=== PATIENT | male | born 1965 | race Caucasian/White ===

== ENCOUNTER 2019-01-13 00:50 | Inpatient (IN) ==
--- NOTE | 2019-01-13 00:57 | ED ---
HPI General Chief complaint: Medical Clearance Stated complaint: Medical Time Seen by Provider: 01/13/19 00:54 Source: patient History of Present Illness HPI narrative: The patient is a 53 year old male who presents to the [facility] emergency department with a history of reportedly noticing numbness to his left foot, left lateral leg, and left side of his thorax below his nipple that began approximately a month ago. The patient reports that at times he has also had weakness in his left leg. He reports that he mainly notices this when he first gets up in the morning from bed and it causes him to stumble into the wall. He denies having any numbness or tingling to the upper extremities, or weakness of his upper extremities. He denies having any facial droop, headache , difficulty with word finding ability, vertigo, or vision changes. He denies having any saddle anesthesia. He reports that he has had intermittent right- sided back pain. He denies any trauma or injury associated with this. He denies having any loss of bowel or bladder control. He denies having any known recent fevers. He denies having any recent weight changes or night sweats. He denies any prior history of IV drug use. The patient was transferred over from the [place] [facility] emergency department for an MRI of the C-spine, T-spine, and lumbar spine. Laboratory studies were done at that facility and reviewed upon the patient's arrival. On review of systems otherwise, the patient denies having any cough, congestion, neck pain, chest pain, shortness of breath, abdominal pain, vomiting, diarrhea, urinary symptoms, or other neurologic symptoms. Related Data Home Medications Medication Instructions Recorded Confirmed No Known Home Medications 01/12/19 01/13/19 Allergies Allergy/AdvReac Type Severity Reaction Status Date / Time No Known Allergies Allergy Verified 01/12/19 22:25 Review of Systems ROS: all other systems reviewed are negative PMFSH History History Provided By: Patient Medical History Medical History Patient denies medical problems (Acute) Surgical History Surgical History H/O hernia repair (Acute) History of surgery on arm (Acute) Social History Social History Substance History: Active Abuse Smoking Status: Former smoker How Often Do You Have a Drink Containing Alcohol: Monthly or less Recent Travel in [facility] within the Last 8 Weeks: No Recent Out of Country Travel within the Last 8 Weeks: No Exam Const General: cooperative, no acute distress and well developed Nutritional Appearance: well nourished Orientation: alert, awake and oriented x3 [facility] Head: normocephalic and atraumatic Nose: no nasal discharge and no epistaxis Mouth: moist mucous membranes Throat: posterior oropharynx normal and uvula midline Eyes Sclera: normal sclerae Pupils: PERRL Neck Neck: no meningeal signs, trachea midline and no JVD Resp Effort & Inspection: no use of accessory muscles Auscultation: clear to auscultation bilaterally Cardio Rate: regular rate Rhythm: regular rhythm Heart Sounds: no gallops, no murmurs and no rubs GI Inspection: non-distended Palpation: soft, no hepatosplenomegaly, no guarding, not rigid and nontender Auscultation: normal bowel sounds Back/Spine/Pelvis Back: no CVA tenderness Cervical Spine: No cervical muscular tenderness and No cervical spinal tenderness Thoracic/Lumbar Spine: No thoracic spinal tenderness and No lumbar spinal tenderness Sacroiliac joints: on the right (Reported tenderness on palpation along the SI joint.) Skin General: dry skin (warm) Neuro General: alert, awake and oriented x3 Cranial Nerves: CN's II-XI intact bilaterally Speech: speech normal Gait: staggering (The patient has difficulty with his gait. The patient has difficulty weightbearing when tested on his left foot.) Motor: strength 5/5 throughout and no movement abnormalities noted Sensory Exam: other (The patient has loss of sensation along the lateral aspect of his lower leg on the left side, loss of sensation to the bottom of the foot in a stocking distribution. The patient has loss of sensation along the lateral aspect of his thorax to approximately 2 dermatomes below his nipple line.) Extrem General: normal to inspection, no clubbing, no cyanosis and no edema Psych Mood: congruent mood Affect: normal affect Judgment: judgment good Course Initial Documented Vital Signs Temperature 97.8 F 01/13/19 01:08 Pulse Rate 65 01/13/19 01:08 Respiratory Rate 14 01/13/19 01:08 Blood Pressure 150/84 H 01/13/19 01:08 Pulse Oximetry 99 01/13/19 01:08 Last Documented Vital Signs Temperature 97.8 F 01/13/19 01:08 Pulse Rate 62 01/13/19 06:27 Respiratory Rate 12 01/13/19 06:27 Blood Pressure 144/81 H 01/13/19 06:27 Pulse Oximetry 99 01/13/19 06:27 Medical Decision Making MDM Narrative Medical decision making narrative: During the course of the patient's emergency department visit, the patient's history, examination, and differential diagnosis were reviewed with the patient. The patient was placed on a lpn rn with oximetry and frequent blood pressure monitoring. The patient had IV access obtained and blood work sent for analysis. A diagnostic evaluation was continued regarding the patient's new neurologic symptoms over the last month. The patient had an MRI of the C-spine, T-spine, lumbar spine ordered. The sedimentation rate was added to the patient's workup that was previously done and reviewed from [place] emergency department. The patient's diagnostic studies are remarkable for a white blood cell count of 7.7, hemoglobin 13.9, platelets 277 with a normal differential, PT 9.6, PTT 26.5 , chemistries remarkable for chloride of 108, anion gap of 4, GFR of 78. CT scan of the brain was done at this facility that showed no acute abnormality. The patient was given aspirin 324 mg p.o. x1. MRI of the cervical spine revealed anterolisthesis of C4 on C5 and C7 on T1, minimal retrolisthesis of C5 on C6, without any significant canal stenosis, mild broad-based disc bulge without canal stenosis at C3-C4, mild broad-based protrusion of C4-C5 C5-C6 and C6-C7 causing mild canal stenosis, mild to moderate broad-based protrusion at C5 7 to T1 causes mild canal stenosis. T-spine MRI showed mild kyphosis and minimal degenerative changes, small right paracentral protrusion at T6-7 without canal stenosis, tiny central protrusion at T7-T8 without canal stenosis , mild broad-based disc bulge at T8-9 without canal stenosis. The patient's lumbar spine MRI shows1. Multilevel disc bulges including mild canal stenosis at L2-3, L3-4 and L4-5 levels.2. Scattered facet arthropathyand neural foraminal narrowing as above. Due to the patient's neurologic symptoms and lack of primary care physician, with unsteady gait, the patient will be admitted to the hospital for continued evaluation and treatment along with a neurologic consultation. The patient's case including history, pertinent physical examination findings, and laboratory studies were discussed with Dr. Harrison. It was agreed that the patient would be [facility]. The patient's results were discussed with the patient, including the plan of care. I explained that further testing and/ or monitoring is indicated based on the patient's history, examination, and/ or laboratory findings. Therefore, I recommended admission for additional evaluation. The patient expressed understanding and was agreeable with this plan. The patient was admitted to the hospital in guarded condition and sent to a bed under the care of the [facility] service. Medical Screen Exam Complete: Yes Emergency Medical Condition: Yes Differential Diagnosis Differential Diagnosis: Stroke, versus intracranial mass, versus cord compression, versus radiculopathy, versus multiple sclerosis, versus transverse myelitis Medical Records Medical records reviewed: Yes I reviewed the patient's medical records. Lab Data Lab results reviewed: Yes I reviewed the patient's lab results. Lab Results 01/13/19 Range/Units 02:43 ESR 6 (0-20) mm/hr Imaging Data Radiologist's impression: Cervical Spine MRI 01/13/19 01:00 CONCLUSION: 1. Anterolisthesis C4 on 5 and C7 on T1. 2. Minimal retrolisthesis C5 on 6. 3. Mild broad-based disc bulge without canal stenosis at C3-4. 4. Mild broad-based protrusion at C4-5, C5-6 and C6-7 levels causing mild canal stenosis. 5. Mild to moderate broad-based protrusion at C7-T1 causes mild canal stenosis. Lumbar Spine MRI 01/13/19 01:05 CONCLUSION: 1. Multilevel disc bulges including mild canal stenosis at L2-3, L3-4 and L4-5 levels. 2. Scattered facet arthropathy and neural foraminal narrowing as above. Thoracic Spine MRI 01/13/19 01:05 CONCLUSION: 1. Mild kyphosis and minimal degenerative changes. 2. Small right paracentral protrusion at T6-7 without canal stenosis. 3. Tiny central protrusion at T7-8 without canal stenosis. 4. Mild broad-based disc bulge T8-9 without canal stenosis. Head CT 01/13/19 03:59 CONCLUSION: 1. No acute intracranial abnormality . . Discharge Plan Discharge Disposition Patient Disposition: ED Admit(ED Internal Use Only) Discharge Order Discharge Orders: ED Use Only Admit Order (Routine); Ordered 01/13/19 Ordered By: Corrine Miles Discharge Details Diagnosis: Multiple neurological symptoms Physicians Team ED Provider: Corrine Miles Primary Care Provider: Primary Care Naheed Nam Attending Provider: Jadyn Casillas Other Providers: Gunner Back Discharge Interventions Interventions: Vital Signs Last Done: 01/13/19 01:17 Status ED Status: Admitted Patient
--- NOTE | 2019-01-13 02:17 | MR ---
EXAM DATE: 01/13/2019 2:13 AM EST AGE/SEX: 53 years / Male INDICATIONS: Foot drop. Left lower extremity numbness and weakness. CLINICAL DATA: This is the patient's initial encounter. Patient reports that signs and symptoms have been present for 1 month and indicates a pain score of 0/10. MEDICAL/SURGICAL HISTORY: None. Inguinal hernia repair. COMPARISON: No prior exams available for comparison. TECHNIQUE: Multiplanar, multisequence MRI of the thoracic spine was performed. FINDINGS: Vertebrae: Normal vertebral body height. Homogeneous marrow signal. Diffuse disc desiccation and mi nimal degenerative changes. Alignment: Mild kyphosis without spondylolisthesis. Cord: Normal position and configuration. T1-T2: The thecal sac has a normal diameter. No evidence of disc bulge or protrusion. T2-T3: The thecal sac has a normal diameter. No evidence of disc bulge or protrusion. T3-T4: The thecal sac has a normal diameter. No evidence of disc bulge or protrusion. T4-T5: The thecal sac has a normal diameter. No evidence of disc bulge or protrusion. T5-T6: The thecal sac has a normal diameter. No evidence of disc bulge or protrusion. T6-T7: Small right paracentral protrusion is seen without canal stenosis. T7-T8: Tiny central protrusion abuts the ventral thecal sac without canal stenosis T8-T9: Mild broad-based disc bulge abuts ventral thecal sac without canal stenosis T9-T10: The thecal sac has a normal diameter. No evidence of disc bulge or protrusion. T10-T11: The thecal sac has a normal diameter. No evidence of disc bulge or protrusion. T11-T12: The thecal sac has a normal diameter. No evidence of disc bulge or protrusion. T12-L1: The thecal sac has a normal diameter. No evidence of disc bulge or protrusion. CONCLUSION: 1. Mild kyphosis and minimal degenerative changes. 2. Small right paracentral protrusion at T6-7 without canal stenosis. 3. Tiny central protrusion at T7-8 without canal stenosis. 4. Mild broad-based disc bulge T8-9 without canal stenosis. Electronically signed by: Hardeep Shepherd MD Board Certified Radiologist 01/13/2019 2:16 AM EST
--- NOTE | 2019-01-13 02:41 | MR ---
EXAM DATE: 01/13/2019 2:24 AM EST AGE/SEX: 53 years / Male INDICATIONS: Foot drop. Left lower extremity numbness and weakness. CLINICAL DATA: This is the patient's initial encounter. Patient reports that signs and symptoms have been present for 1 month and indicates a pain score of 0/10. MEDICAL/SURGICAL HISTORY: None. Inguinal hernia repair. COMPARISON: No prior exams available for comparison. TECHNIQUE: Multiplanar, multisequence MRI of the lumbar spine was performed without contrast. Patie nt was scanned in a sitting position; neutral, flexion, and extension scans were performed in the sa gittal plane. FINDINGS: Vertebra: Homogeneous signal. Normal alignment. Conus: Normal level and configuration. T12-L1: The thecal sac has a normal diameter. No evidence of disc bulge or protrusion. The neural foramina are patent bilaterally. L1-L2: The thecal sac has a normal diameter. No evidence of disc bulge or protrusion. The neural foramina are patent bilaterally. L2-L3: Mild broad-based disc bulge abuts ventral thecal sac causing mild canal stenosis. Moderate f acet arthropathy. The neural foramina are patent bilaterally. L3-L4: Mild broad-based disc bulge abuts ventral thecal sac causing mild canal stenosis. Moderate f acet arthropathy. The neural foramina are patent bilaterally. L4-L5: Mild broad-based disc bulge with annular fissure posteriorly abuts ventral thecal sac causin g mild canal stenosis. Moderate facet arthropathy. There is mild neural foraminal narrowing bilateral ly. L5-S1: The thecal sac has a normal diameter. No evidence of disc bulge or protrusion. Moderate angie ral foraminal narrowing bilaterally. Moderate facet arthropathy. CONCLUSION: 1. Multilevel disc bulges including mild canal stenosis at L2-3, L3-4 and L4-5 levels. 2. Scattered facet arthropathy and neural foraminal narrowing as above. Electronically signed by: Hardeep Shepherd MD Board Certified Radiologist 01/13/2019 2:40 AM EST
--- NOTE | 2019-01-13 02:46 | MR ---
EXAM DATE: 01/13/2019 2:38 AM EST AGE/SEX: 53 years / Male INDICATIONS: Foot drop. Left lower extremity numbness and weakness. CLINICAL DATA: This is the patient's initial encounter. Patient reports that signs and symptoms have been present for 1 month and indicates a pain score of 0/10. MEDICAL/SURGICAL HISTORY: None. Inguinal hernia repair. COMPARISON: [facility] [place], MR THORACIC SPINE W/O CONTRAST, 01/13/2019. . TECHNIQUE: Multiplanar, multisequence MRI examination of the cervical spine was performed without co ntrast. FINDINGS: Motion artifact. Vertebrae: Normal vertebral body height. Homogeneous marrow signal. Diffuse disc desiccation and di sc space narrowing. Alignment: Minimal anterolisthesis C4 on 5 and 5 mm anterolisthesis C7 on T1. Minimal retrolisthesis C5 on 6. Cord: Normal configuration and signal. Post Fossa: The cerebellar tonsils are normal in position. C2-C3: The thecal sac has a normal configuration. There is no evidence of disc herniation or spinal canal stenosis. Mild neural foraminal narrowing on the right. Left neural foramen patent. C3-C4: Mild broad-based disc bulge abuts ventral thecal sac without canal stenosis. Mild to moderate bilateral neural foraminal narrowing. C4-C5: Minimal anterolisthesis and mild broad-based protrusion abuts the ventral thecal sac and caus es mild canal stenosis. Mild to moderate bilateral neural foraminal narrowing.. C5-C6: Minimal retrolisthesis. Mild broad-based protrusion abuts the ventral thecal sac causing mild canal stenosis. Moderate to severe bilateral neural foraminal narrowing. The neural foramina are pat ent bilaterally. C6-C7: Mild broad-based protrusion abuts the ventral thecal sac causing mild canal stenosis. Moderat e bilateral neural foraminal narrowing. C7-T1: Anterolisthesis. Mild to moderate broad-based protrusion abuts the ventral thecal sac and vent ral cord causing mild canal stenosis. CONCLUSION: 1. Anterolisthesis C4 on 5 and C7 on T1. 2. Minimal retrolisthesis C5 on 6. 3. Mild broad-based disc bulge without canal stenosis at C3-4. 4. Mild broad-based protrusion at C4-5, C5-6 and C6-7 levels causing mild canal stenosis. 5. Mild to moderate broad-based protrusion at C7-T1 causes mild canal stenosis. Electronically signed by: Hardeep Shepherd MD Board Certified Radiologist 01/13/2019 2:44 AM EST
[2019-01-13] MEDS ORDERED: Bisacodyl 10 MG Supp RECTAL PRN (04:32)
--- NOTE | 2019-01-13 04:37 | CT ---
EXAM DATE: 01/13/2019 4:33 AM EST AGE/SEX: 53 years / Male INDICATIONS: Numbness down left lower extremity. CLINICAL DATA: This is the patient's initial encounter. Patient reports that signs and symptoms have been present for 1 day and indicates a pain score of 10/10. MEDICAL/SURGICAL HISTORY: None. . Hernia, Right arm. RADIATION DOSE: 56.35 CTDI (mGy) COMPARISON: No prior exams available for comparison. TECHNIQUE: CT of the head without contrast. Using automated exposure control and adjustment of the mA and/or kV according to patient size, radiation dose was kept as low as reasonably achievable to ob tain optimal diagnostic quality images. DICOM format image data is available electronically for revi ew and comparison. FINDINGS: Cerebrum: The ventricles are normal for age. No evidence of midline shift, mass lesion, hemorrhage or acute infarction. No extraaxial fluid collections are seen. Posterior Fossa: The cerebellum and brainstem are intact. The 4th ventricle is midline. The cerebe llopontine angle is unremarkable. Extracranial: The visualized portion of the orbits is intact. Skull: The calvaria is intact. No evidence of skull fracture. CONCLUSION: 1. No acute intracranial abnormality . . Electronically signed by: Hardeep Shepherd MD Board Certified Radiologist 01/13/2019 4:36 AM EST
--- NOTE | 2019-01-13 11:23 | P.HPIM ---
History of Present Illness Primary Care Physician: No Primary Care Physician Chief Complaint: leg weakness History of Present Illness: 53yo w m states hes been having difficulty with his left leg for about a month. He states he started to have numbness and difficulty with gait, and his left leg will give out on him while walking or standing. Its been progressing to the point that he is unable to walk at home without stumbling into [place] and nearly falling and he has noticed the numbness has progressed up his left side now, so he finally presented to the ED at [place] and was sent to [place] for MRIs and neurologic eval. Patient denies any pain though states sometimes some left thigh pain, and more right and back pain, denies dizziness, fever, nack or arm pain or weakness, bowel or bladder symptoms or other history. 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 This includes certification that hospital inpatient services are reasonable and necessary and in the case of services not specified as inpatient-only under 42 CFR 419.22(n), that they are appropriately provided as inpatient services in accordance to with the 2-midnight benchmark under 43 CFR 412.3(e) Estimated Total Length of Stay (Days): 2 Plans for Post Hospital Care: Not yet determined [facility] Medical History Medical History Patient denies medical problems (Acute) Surgical History Surgical History H/O hernia repair (Acute) History of surgery on arm (Acute) Social History Social History Substance History: No History of Abuse Second Hand Smoke Exposure: No Smoking Status: Former smoker Tobacco Type: Cigarettes How Often Do You Have a Drink Containing Alcohol: Monthly or less Recent Travel in [facility] within the Last 8 Weeks: No Recent Out of Country Travel within the Last 8 Weeks: No Immunization History Tetanus Immunization: >5 Years Medications and Allergies Allergies Allergy/AdvReac Type Severity Reaction Status Date / Time No Known Allergies Allergy Verified 01/12/19 22:25 Home Medications Medication Instructions Recorded Confirmed Type No Known Home Medications 01/12/19 01/13/19 History Active Medications: Active Medications Acetaminophen (Tylenol) 650 mg PO Q4H PRN PRN Reason: Temp > 100.4 Al Hydroxide/Mg Hydroxide (Milk Of Magnesia Liq) 30 ml PO Q12H PRN PRN Reason: Mild Constipation Bisacodyl (Dulcolax Supp) 10 mg RECTAL DAILY PRN PRN Reason: SEVERE CONSITIPATION Lactulose (Lactulose Liq) 30 ml PO DAILY PRN PRN Reason: SEVERE CONSITIPATION Ondansetron HCl (Zofran Inj) 4 mg IV.PUSH Q6H PRN PRN Reason: NAUSEA OR VOMITING Sennosides (Senokot) 17.2 mg PO Q12H PRN PRN Reason: Moderate Constipation Sodium Chloride (Ns Flush) 2 ml IV.FLUSH BID KIRBY Last Admin: 01/13/19 09:29 Dose: 2 ml Sodium Chloride (Ns Flush) 2 ml IV.FLUSH PRN PRN PRN Reason: FLUSH AFTER USING IV ACCESS Physical Exam Vital signs: Vital Signs 01/13/19 01:08 01/13/19 01:17 01/13/19 01:18 Temperature 97.8 F Pulse Rate 65 64 Respiratory Rate 14 12 Blood Pressure 150/84 H Pulse Oximetry 99 99 99 01/13/19 06:27 01/13/19 07:14 Temperature Pulse Rate 62 76 Respiratory Rate 12 18 Blood Pressure 144/81 H 128/61 Pulse Oximetry 99 Intake & Output 01/12/19 01/13/19 01/13/19 18:59 06:59 18:59 Weight 74.843 kg Narrative: GENERAL: wdwn 53yo w m thin, pleasant, no distress SKIN: Warm and dry. multiple tatoos on arms no open sores or wounds, good turgor HEAD: Atraumatic. Normocephalic. EYES: Pupils equal and round. No scleral icterus. No injection or drainage. EOMI ENT: No nasal bleeding or discharge. Mucous membranes pink and moist. no gum lip dental lesions noted NECK: Supple, Trachea midline. No JVD. thyroid smooth not enlarged CARDIOVASCULAR: Regular rate and rhythm. no mr gallops clicks anterior chest wall no mass no tenderness RESPIRATORY: No accessory muscle use. Clear to auscultation. Breath sounds equal bilaterally. no dullness to percussion GASTROINTESTINAL: Abdomen soft, non-tender, nondistended. Hepatic and splenic margins not palpable. MUSCULOSKELETAL: Extremities without clubbing, cyanosis, or edema. No obvious deformities. NEUROLOGICAL: Awake and alert. No obvious cranial nerve deficits. Motor grossly within normal limits. Five out of 5 muscle strength in the arms and legs. Normal speech. less sensation to left LE, no clonus no rigidity, mild decrease dtr Left patellar compared to Right PSYCHIATRIC: Appropriate mood and affect; insight and judgment normal. Results Labs CBC & Chem 7: 01/14/19 05:39 01/14/19 05:39 Imaging Impressions Cervical Spine MRI 01/13/19 01:00 CONCLUSION: 1. Anterolisthesis C4 on 5 and C7 on T1. 2. Minimal retrolisthesis C5 on 6. 3. Mild broad-based disc bulge without canal stenosis at C3-4. 4. Mild broad-based protrusion at C4-5, C5-6 and C6-7 levels causing mild canal stenosis. 5. Mild to moderate broad-based protrusion at C7-T1 causes mild canal stenosis. Lumbar Spine MRI 01/13/19 01:05 CONCLUSION: 1. Multilevel disc bulges including mild canal stenosis at L2-3, L3-4 and L4-5 levels. 2. Scattered facet arthropathy and neural foraminal narrowing as above. Thoracic Spine MRI 01/13/19 01:05 CONCLUSION: 1. Mild kyphosis and minimal degenerative changes. 2. Small right paracentral protrusion at T6-7 without canal stenosis. 3. Tiny central protrusion at T7-8 without canal stenosis. 4. Mild broad-based disc bulge T8-9 without canal stenosis. Head CT 01/13/19 03:59 CONCLUSION: 1. No acute intracranial abnormality . . Caprini VTE Risk Assessment Caprini VTE Risk Assessment: Moderate/High Risk (score >= 2) Caprini Risk Assessment Model: Point Value = 1 Point Value = 2 Point Value = 3 Point Value = 5 Age 41-60 Minor surgery BMI > 25 kg/m2 Swollen legs Varicose veins or History of unexplained or recurrent spontaneous Oral contraceptives or hormone replacement Sepsis (< 1 month) Serious lung disease, including pneumonia (< 1 month) Abnormal pulmonary function Acute myocardial infarction Congestive heart failure (< 1 month) History of inflammatory bowel disease Medical patient at bed rest Age 61-74 Arthroscopic surgery Major open surgery (> 45 min) Laparoscopic surgery (> 45 min) Malignancy Confined to bed (> 72 hours) Immobilizing plaster cast Central venous access Age >= 75 History of VTE Family history of VTE Factor V Leiden Prothrombin [id number] Lupus anticoagulant Anticardiolipin antibodies Elevated serum homocysteine Heparin-induced thrombocytopenia Other congenital or acquired thrombophilia Stroke (< 1 month) Elective arthroplasty Hip, pelvis, or leg fracture Acute spinal cord injury (< 1 month) Prophylaxis Regimen: Total Risk Factor Score Risk Level Prophylaxis Regimen 0-1 Low Early ambulation 2 Moderate Order ONE of the following: *Sequential Compression Device (SCD) *Heparin 5000 units SQ BID 3-4 Higher Order ONE of the following medications: *Heparin 5000 units SQ TID *Enoxaparin/Lovenox 40 mg SQ daily (WT < 150 kg, CrCl > 30 mL/min) *Enoxaparin/Lovenox 30 mg SQ daily (WT < 150 kg, CrCl > 10-29 mL/min) *Enoxaparin/Lovenox 30 mg SQ BID (WT < 150 kg, CrCl > 30 mL/min) AND/OR *Sequential Compression Device (SCD) 5 or more Highest Order ONE of the following medications: *Heparin 5000 units SQ TID (Preferred with Epidurals) *Enoxaparin/Lovenox 40 mg SQ daily (WT < 150 kg, CrCl > 30 mL/min) *Enoxaparin/Lovenox 30 mg SQ daily (WT < 150 kg, CrCl > 10-29 mL/min) *Enoxaparin/Lovenox 30 mg SQ BID (WT < 150 kg, CrCl > 30 mL/min) AND *Sequential Compression Device (SCD) Assessment and Plan Plan PROGRESSIVE LEFT LE PARAESTHESIA w falls gait instability - pt eval, consult Neurology, DDD outpt followup, cont pt.
[2019-01-13] MEDS: Acetaminophen 325 MG Tablet PO PRN (17:00)
--- NOTE | 2019-01-13 20:07 | MB ---
cc: Gunner Back MD, PhD DATE: 01/13/2019 REASON FOR CONSULTATION: Left leg weakness. HISTORY OF PRESENT ILLNESS: Mr. Abreu is a 53-year-old man in previously good health until about a month ago, started noticing weakness of the left leg, some difficulty picking it up and walking. It has been gradually progressive. He has numbness in the leg as well. He does have back pain in the lumbar area. Denies neck pain. He has not had any weakness of the right leg or upper extremity symptoms. Denies any bladder incontinence. PAST MEDICAL HISTORY: Otherwise unremarkable except for history of hernia repair and arm surgery in the past. PHYSICAL EXAMINATION: Blood pressure 118/76, pulse 72, respirations 16, temperature 97.8 degrees. NEUROLOGIC: Higher cortical functions normal. Cranial nerves intact. Motor exam is 5/5 in all groups in the upper extremities. He had 5/5 strength in the right lower extremity. Left iliopsoas 4/5, left quads 5/5, left hamstring 4/5, left tibialis anterior 4/5, left gastrocnemius soleus 5/5. He has got some spasticity in the left leg. Sensory exam is normal. Deep tendon reflexes are 3+ patellar symmetric, 2+ ankle symmetric. Babinski is equivocal bilaterally, 1+ biceps, triceps and brachioradialis symmetric. IMAGING STUDIES: MRI scan of the cervical spine reveals spondylosis at several levels. There is some anterolisthesis C4 and C5 as well as C7 on T1 and mild retrolisthesis C5-C6, there is a disk bulge without stenosis at C3-C4, broad-based protrusions and disk bulges are seen at C4-C5, C5-C6, C6-C7 with mild stenosis and reviewing the MRI, the C7-T1 area does appear to cause some indentation on the spinal cord due to disk protrusion and anterolisthesis. MRI of the thoracic spine, mild kyphosis minimal degenerative changes. No evidence of any significant stenosis is identified. MRI of the lumbar spine, there is disc bulges L2-L3, L3-L4, and L4-L5 with mild stenosis. S LABORATORY DATA: Sedimentation rate is 6. IMPRESSION: Lower extremity weakness, possibly related to cervical spondylosis with myelopathy lumbosacral plexitis is also a possibility, although his reflexes appear to be hyperactive. RECOMMENDATIONS: MRI brain rule out right hemisphere process. Also, we will ask for neurosurgical opinion regarding the cervical stenosis. We will also place the patient on Decadron as well. Gunner Back MD, PhD CINDY/ts , 07:17 PM , 07:23 PM
[2019-01-14] MEDS: Acetaminophen 325 MG Tablet PO PRN (01:18)
[2019-01-14] MEDS: Famotidine 20 MG Tablet PO SCH ×3 (01:20→21:38)
[2019-01-14 06:40] LABS: Baso % (Auto) 0.2 % (0.0-2.0); Eos % (Auto) 0.2 % (0.0-4.0); Hematocrit 44.1 % (39.0-51.0); Hemoglobin 15.2 gm/dL (13.0-17.0); Lymph # (Auto) 0.8 th/mm3 (1.0-4.8); Lymph % (Auto) 6.8 % (9.0-44.0); Mean Corpuscular HGB Conc 34.6 % (32.0-36.0); Mean Corpuscular Hemoglobin 31.1 pg (27.0-34.0); Mean Corpuscular Volume 89.8 fL (80.0-100.0); Mono # (Auto) 0.1 th/mm3 (0.0-0.9); Mono % (Auto) 0.8 % (0.0-8.0); Neut # (Auto) 10.9 th/mm3 (1.8-7.7); Platelet Count 259 th/mm3 (150-450); Red Blood Count 4.91 mil/mm3 (4.50-5.90); Red Cell Distribution Width 12.9 % (11.6-17.2); White Blood Count 11.8 th/mm3 (4.0-11.0)
[2019-01-14 07:03] LABS: Alanine Aminotransferase 20 U/L (12-78); Albumin 3.7 g/dL (3.4-5.0); Anion Gap 6 meq/L (5-15); Aspartate Aminotransferase 15 U/L (15-37); Blood Urea Nitrogen 12 mg/dL (7-18); Calcium 8.7 mg/dL (8.5-10.1); Carbon Dioxide 27.7 meq/L (21.0-32.0); Chloride 107 meq/L (98-107); Glomerular Filtration Rate 81 mL/min (>89); Glucose,Random 115 mg/dL (74-106); Potassium 4.1 meq/L (3.5-5.1); Sodium 141 meq/L (136-145)
[2019-01-14 07:05] LABS: Alkaline Phosphatase 63 U/L (45-117); Total Protein 7.3 g/dL (6.4-8.2)
--- NOTE | 2019-01-14 10:26 | P.CONNS ---
History of Present Illness Service: neurosurgery Consult date: 01/14/19 Requesting Physician: Gunner Back Reason for Consult: Cervical myelopathy Primary Care Provider: No Primary Care Physician Chief Complaint: leg weakness History of Present Illness: Mr Abreu is a 53 year old male who has been having difficulty with his left leg for about a month. He states he started to have numbness and difficulty with gait, and his left leg will give out on him while walking or standing. His deficits have been progressing to the point that he is unable to walk at home without stumbling into [place] and nearly falling and he has noticed the numbness has progressed up his left side now. He presented to the ED at [place] and was sent to [place] for MRIs and neurologic evaluation. Patient denies any pain though states sometimes some left thigh pain, and more right and back pain, denies dizziness, fever, nack or arm pain or weakness, bowel or bladder symptoms or other history. PMFSH - History History Provided By: Patient - Medical History Medical History: Medical History (Last Reviewed 01/14/19 @ 09:13 by Noy Johns) Patient denies medical problems - Surgical History Surgical History: Surgical History (Last Reviewed 01/14/19 @ 09:13 by Noy Johns) H/O hernia repair History of surgery on arm - Tobacco History Second Hand Smoke Exposure: No Tobacco Use In Past 30 Days: No Smoking Status: Former smoker Tobacco Type: Cigarettes - Alcohol History How Often Do You Have a Drink Containing Alcohol: Monthly or less - Substance Use History Substance History: No History of Abuse - Travel History Recent Travel in the [place] Within the Last 8 Weeks: No Recent Travel Out of the Country Within the Last 8 Weeks: No - Immunization History Tetanus Immunization: >5 Years Medications and Allergies Active Medications: Active Medications Acetaminophen (Tylenol) 650 mg PO Q4H PRN PRN Reason: Temp > 100.4 Last Admin: 01/14/19 01:18 Dose: 650 mg Al Hydroxide/Mg Hydroxide (Milk Of Magnesia Liq) 30 ml PO Q12H PRN PRN Reason: Mild Constipation Bisacodyl (Dulcolax Supp) 10 mg RECTAL DAILY PRN PRN Reason: SEVERE CONSITIPATION Dexamethasone Sodium Phosphate (Decadron Inj) 4 mg IV.PUSH Q6HR KIRBY Last Admin: 01/14/19 05:05 Dose: 4 mg Famotidine (Pepcid) 20 mg PO BID [facility] Last Admin: 01/14/19 09:40 Dose: 20 mg Lactulose (Lactulose Liq) 30 ml PO DAILY PRN PRN Reason: SEVERE CONSITIPATION Ondansetron HCl (Zofran Inj) 4 mg IV.PUSH Q6H PRN PRN Reason: NAUSEA OR VOMITING Sennosides (Senokot) 17.2 mg PO Q12H PRN PRN Reason: Moderate Constipation Sodium Chloride (Ns Flush) 2 ml IV.FLUSH BID [facility] Last Admin: 01/14/19 09:42 Dose: 2 ml Sodium Chloride (Ns Flush) 2 ml IV.FLUSH PRN PRN PRN Reason: FLUSH AFTER USING IV ACCESS Allergies Allergy/AdvReac Type Severity Reaction Status Date / Time No Known Allergies Allergy Verified 01/12/19 22:25 Home Medications Medication Instructions Recorded Confirmed Type No Known Home Medications 01/12/19 01/13/19 History Exam Vital signs: Vital Signs 01/13/19 12:46 01/13/19 16:00 01/13/19 19:00 Temperature 97.8 F 98.2 F Pulse Rate 77 72 82 Respiratory Rate 18 16 14 Blood Pressure 128/57 L 118/76 122/67 Pulse Oximetry 98 97 01/13/19 23:44 01/14/19 00:00 01/14/19 03:21 Temperature 98.1 F 98.4 F Pulse Rate 78 80 81 Respiratory Rate 14 18 Blood Pressure 128/68 140/92 H Pulse Oximetry 99 99 01/14/19 04:00 01/14/19 07:00 01/14/19 07:23 Temperature 98.0 F 98.4 F Pulse Rate 68 64 98 H Respiratory Rate 16 20 Blood Pressure 118/76 125/69 Pulse Oximetry 98 97 01/14/19 08:00 01/14/19 09:00 Temperature Pulse Rate 70 68 Respiratory Rate Blood Pressure Pulse Oximetry Intake & Output 01/13/19 01/14/19 01/14/19 18:59 06:59 18:59 Intake Total 400 / 400 480 / 480 Output Total 300 / 300 Balance 400 / 400 180 / 180 Intake: Oral 400 / 400 480 / 480 Output: Urine 300 / 300 Other: # Voids 3 Date of Last Bowel Movement 01/13/19 Results - Laboratory Findings CBC and BMP: 01/14/19 05:39 02/28/19 05:39 Abnormal lab findings: Abnormal Labs 01/14/19 01/14/19 05:39 05:39 WBC 11.8 H Neut % (Auto) 92.0 H Lymph % (Auto) 6.8 L Neut # (Auto) 10.9 H Lymph # (Auto) 0.8 L Estimated GFR 81 L Random Glucose 115 H Assessment and Plan - Plan I have reviewed the clinical and radiological findings Impressions Cervical Spine MRI 01/13/19 01:00 CONCLUSION: 1. Anterolisthesis C4 on 5 and C7 on T1. 2. Minimal retrolisthesis C5 on 6. 3. Mild broad-based disc bulge without canal stenosis at C3-4. 4. Mild broad-based protrusion at C4-5, C5-6 and C6-7 levels causing mild canal stenosis. 5. Mild to moderate broad-based protrusion at C7-T1 causes mild canal stenosis. Lumbar Spine MRI 01/13/19 01:05 CONCLUSION: 1. Multilevel disc bulges including mild canal stenosis at L2-3, L3-4 and L4-5 levels. 2. Scattered facet arthropathy and neural foraminal narrowing as above. Thoracic Spine MRI 01/13/19 01:05 CONCLUSION: 1. Mild kyphosis and minimal degenerative changes. 2. Small right paracentral protrusion at T6-7 without canal stenosis. 3. Tiny central protrusion at T7-8 without canal stenosis. 4. Mild broad-based disc bulge T8-9 without canal stenosis. Head CT 01/13/19 03:59 CONCLUSION: 1. No acute intracranial abnormality Caprini VTE Risk Assessment Caprini Risk Assessment Model: Point Value = 1 Point Value = 2 Point Value = 3 Point Value = 5 Age 41-60 Minor surgery BMI > 25 kg/m2 Swollen legs Varicose veins or History of unexplained or recurrent spontaneous Oral contraceptives or hormone replacement Sepsis (< 1 month) Serious lung disease, including pneumonia (< 1 month) Abnormal pulmonary function Acute myocardial infarction Congestive heart failure (< 1 month) History of inflammatory bowel disease Medical patient at bed rest Age 61-74 Arthroscopic surgery Major open surgery (> 45 min) Laparoscopic surgery (> 45 min) Malignancy Confined to bed (> 72 hours) Immobilizing plaster cast Central venous access Age >= 75 History of VTE Family history of VTE Factor V Leiden Prothrombin [id number] Lupus anticoagulant Anticardiolipin antibodies Elevated serum homocysteine Heparin-induced thrombocytopenia Other congenital or acquired thrombophilia Stroke (< 1 month) Elective arthroplasty Hip, pelvis, or leg fracture Acute spinal cord injury (< 1 month) Prophylaxis Regimen: Total Risk Factor Score Risk Level Prophylaxis Regimen 0-1 Low Early ambulation 2 Moderate Order ONE of the following: *Sequential Compression Device (SCD) *Heparin 5000 units SQ BID 3-4 Higher Order ONE of the following medications: *Heparin 5000 units SQ TID *Enoxaparin/Lovenox 40 mg SQ daily (WT < 150 kg, CrCl > 30 mL/min) *Enoxaparin/Lovenox 30 mg SQ daily (WT < 150 kg, CrCl > 10-29 mL/min) *Enoxaparin/Lovenox 30 mg SQ BID (WT < 150 kg, CrCl > 30 mL/min) AND/OR *Sequential Compression Device (SCD) 5 or more Highest Order ONE of the following medications: *Heparin 5000 units SQ TID (Preferred with Epidurals) *Enoxaparin/Lovenox 40 mg SQ daily (WT < 150 kg, CrCl > 30 mL/min) *Enoxaparin/Lovenox 30 mg SQ daily (WT < 150 kg, CrCl > 10-29 mL/min) *Enoxaparin/Lovenox 30 mg SQ BID (WT < 150 kg, CrCl > 30 mL/min) AND *Sequential Compression Device (SCD)
[2019-01-14] MEDS ORDERED: Gadobutrol PF 7.5 MMOL/7.5 ML Vial (for RAD) IV.SIG ONE (13:40)
--- NOTE | 2019-01-14 14:00 | MR ---
EXAM DATE: 01/14/2019 1:42 PM EST AGE/SEX: 53 years / Male INDICATIONS: CVA. Patient complains of left lower extremity numbness. CLINICAL DATA: This is the patient's initial encounter. Patient reports that signs and symptoms have been present for 1 day and indicates a pain score of 4/10. MEDICAL/SURGICAL HISTORY: None. . Hernia sx, Rt arm sx. COMPARISON: No prior exams available for comparison. TECHNIQUE: Multiplanar, multisequence examination of the brain was performed without and with 7 ml Ga davist (gadobutrol) contrast as a single exam dose. FINDINGS: Cerebrum: The ventricles are normal for age. No evidence of midline shift, mass lesion, hemorrhage or acute infarction. No extraaxial fluid collections are seen. The pituitary gland and suprasellar cistern are normal in configuration. White Matter: No significant signal abnormalities are seen in the white matter. Posterior Fossa: The cerebellum and brainstem are intact. The 4th ventricle is midline. The cerebel lopontine angle is unremarkable. The cerebellar tonsils are normal in position. Diffusion Imaging: No focal areas of restricted diffusion are seen. No evidence of acute infarction . Extracranial: The visualized portions of the orbits and paranasal sinuses are unremarkable. Post Contrast: No abnormal areas of parenchymal or dural enhancement. No evidence of blood-brain ba rrier breakdown. CONCLUSION: 1. No acute hemorrhage, mass or evidence of acute infarction. Electronically signed by: Tashi Weiner MD Board Certified Radiologist 01/14/2019 1:59 PM EST
--- NOTE | 2019-01-14 14:13 | XR ---
EXAM DATE: 01/14/2019 2:05 PM EST AGE/SEX: 53 years / Male INDICATIONS: Anterior spondylolisthesis at C4-5. Please evaluate for possible instability. CLINICAL DATA: This is the patient's initial encounter. Patient reports that signs and symptoms have been present for 1 day and indicates a pain score of 0/10. MEDICAL/SURGICAL HISTORY: None. . Hernia sx, Rt arm sx. COMPARISON: [facility], SPINE CERVICAL COMPLETE ([id number]), 05/09/2017. . FINDINGS: Lateral views of the cervical spine were obtained with neutral, flexion and extension positioning. A grade 1 anterior spondylolisthesis of C4 on C5 is again noted. This measures approximately 4 mm in di stance and does not appear to change with flexion and extension positioning. Degenerative disc change s are present at the C5-6 and C6-7 levels with disc space narrowing and hypertrophic changes. The pre vertebral soft tissues within normal limits. There is no visualized fracture. CONCLUSION: Grade 1 mild anterior spondylolisthesis of C4 on C5 with no abnormal mobility. Electronically signed by: Tashi Weiner MD Board Certified Radiologist 01/14/2019 2:12 PM EST
--- NOTE | 2019-01-14 14:45 | CT ---
EXAM DATE: 01/14/2019 2:28 PM EST AGE/SEX: 53 years / Male INDICATIONS: Myelopathy grade 1 anterior spondylolisthesis of C4 on C5 seen on plain film. CLINICAL DATA: This is the patient's initial encounter. Patient reports that signs and symptoms have been present for 1 day and indicates a pain score of 5/10. MEDICAL/SURGICAL HISTORY: None. . hernia repair RADIATION DOSE: 19.61 CTDI (mGy) COMPARISON: [facility] [place], CERVICAL SPINE W/O CONTRAST, 01/13/2019. . TECHNIQUE: Contiguous axial images were obtained using helical multirow detector technique. Data se ts were acquired prior to and after intravenous administration 67 ml Omnipaque 350 (iohexol) nonioni c water-soluble contrast as a single exam dose. The volumetric data was post-processed with multipl nikolas reconstruction in oblique axial, sagittal, and coronal planes. Using automated exposure control and adjustment of the mA and/or kV according to patient size, radiation dose was kept as low as reas onably achievable to obtain optimal diagnostic quality images. DICOM format image data is available electronically for review and comparison. FINDINGS: Vertebrae: Normal vertebral body height. Alignment: Mild anterior subluxation of C4 on C5 of approximately 3 mm. There is mild anterior sublu xation of C7 on T1 of approximately 3 mm as well. Discs: Degenerative disc changes are present greatest at the C5-6 and C6-7 levels with disc space jeannette rowing and mild hypertrophic change. Post Contrast: No abnormal areas of enhancement are seen in the cord, dural or paraspinal regions. C2-3: The bony spinal canal is normal in size. No evidence of disc bulge or herniation. There is mo derate narrowing of the right neural foramina. The left is patent. C3-4: Mild disc bulge with no mass effect on the thecal sac. There is moderate to severe narrowing o f the right neural foramina secondary to degenerative change involving the facet joint and uncoverteb ral joint. Hypertrophic spurring is noted involving the right facet. C4-5: Mild disc bulge with mild mass effect on the anterior thecal sac and no mass effect upon the c ord. There is moderate narrowing of the neural foramina bilaterally. There are hypertrophic changes i nvolving the facet joints. C5-6: Posterior disc osteophyte complex greatest in the right parasagittal region. This comes in shakeel se contact with the cord. There is moderate narrowing of the neural foramina bilaterally. C6-7: The moderate size right posterior protrusion greatest in the right parasagittal region. This c omes in close contact with the anterior cord. There is moderate narrowing of the neural foramina bila terally. C7-T1: Grade 1 anterior spondylolisthesis. There is apparent diffuse disc bulge with mass effect on the anterior thecal sac. The cord is not well delineated secondary to streak artifact. CONCLUSION: 1. Grade 1 anterior spondylolisthesis of C7 on T1 with apparent diffuse disc bulge with mass effect on the anterior thecal sac. The cord is not well delineated on the CT secondary to streak artifact. M RI there is evidence of central canal stenosis. 2. Posterior disc osteophyte complex at C5-6 greatest in right parasagittal region comes in close c ontact with the cord. 3. Narrowing of the neural foramina at multiple levels greatest on the right at the C3-4 level. 4. Mild grade 1 anterior spondylolisthesis of C4 on C5. Electronically signed by: Tashi Weiner MD Board Certified Radiologist 01/14/2019 2:44 PM EST
--- NOTE | 2019-01-14 16:00 | P.PNIM ---
Subjective Interval history: Patient laying down in bed. He says he is anxious to know what is causing his symptoms. No other complaints from the patient. Physical Exam Vital signs: Vital Signs 01/13/19 16:00 01/13/19 19:00 01/13/19 23:44 Temperature 97.8 F 98.2 F 98.1 F Pulse Rate 72 82 78 Respiratory Rate 16 14 14 Blood Pressure 118/76 122/67 128/68 Pulse Oximetry 97 99 01/14/19 00:00 01/14/19 03:21 01/14/19 04:00 Temperature 98.4 F 98.0 F Pulse Rate 80 81 68 Respiratory Rate 18 16 Blood Pressure 140/92 H 118/76 Pulse Oximetry 99 98 01/14/19 07:00 01/14/19 07:23 01/14/19 08:00 Temperature 98.4 F Pulse Rate 64 98 H 70 Respiratory Rate 20 Blood Pressure 125/69 Pulse Oximetry 97 01/14/19 09:00 01/14/19 11:00 01/14/19 11:22 Temperature 98.0 F Pulse Rate 68 64 97 H Respiratory Rate 18 Blood Pressure 131/83 Pulse Oximetry 98 01/14/19 12:00 01/14/19 12:53 01/14/19 14:00 Temperature Pulse Rate 64 123 H 98 H Respiratory Rate Blood Pressure Pulse Oximetry 01/14/19 15:14 Temperature 97.5 F L Pulse Rate 95 H Respiratory Rate 20 Blood Pressure 115/76 Pulse Oximetry 99 Intake & Output 01/13/19 01/14/19 01/14/19 18:59 06:59 18:59 Intake Total 400 / 400 480 / 480 Output Total 300 / 300 Balance 400 / 400 180 / 180 Intake: Oral 400 / 400 480 / 480 Output: Urine 300 / 300 Other: # Voids 3 Date of Last Bowel Movement 01/13/19 Narrative: General patient in no acute distress HEENT extraocular movements are intact, clear oropharyngeal mucosa, no JVD Cardiovascular S1-S2 audible, RRR, no murmurs rubs or gallops Respiratory clear to auscultation bilaterally Abdomen soft, nontender, nondistended, normal bowel sounds Extremities no edema 2+ distal pulses in bilateral upper and lower extremities Neuro patient can move all 4 extremities, sensation is intact bilaterally. Patient does have some motor weakness in the left lower extremity 4 out of 5 strength and some tingling-like sensation to the left lateral calf down to his foot. I do not see any other focal neurological deficits. Results Labs CBC & Chem 7: 01/14/19 05:39 01/14/19 05:39 Imaging Imaging: Impressions Cervical Spine MRI 01/13/19 01:00 CONCLUSION: 1. Anterolisthesis C4 on 5 and C7 on T1. 2. Minimal retrolisthesis C5 on 6. 3. Mild broad-based disc bulge without canal stenosis at C3-4. 4. Mild broad-based protrusion at C4-5, C5-6 and C6-7 levels causing mild canal stenosis. 5. Mild to moderate broad-based protrusion at C7-T1 causes mild canal stenosis. Cervical Spine CT 01/14/19 00:00 CONCLUSION: 1. Grade 1 anterior spondylolisthesis of C7 on T1 with apparent diffuse disc bulge with mass effect on the anterior thecal sac. The cord is not well delineated on the CT secondary to streak artifact. MRI there is evidence of central canal stenosis. 2. Posterior disc osteophyte complex at C5-6 greatest in right parasagittal region comes in close contact with the cord. 3. Narrowing of the neural foramina at multiple levels greatest on the right at the C3-4 level. 4. Mild grade 1 anterior spondylolisthesis of C4 on C5. Cervical Spine X-Ray 01/14/19 00:00 CONCLUSION: Grade 1 mild anterior spondylolisthesis of C4 on C5 with no abnormal mobility. Head MRI 01/14/19 00:00 CONCLUSION: 1. No acute hemorrhage, mass or evidence of acute infarction. Assessment and Plan Plan This patient is a 53-year-old male who presented with difficulty moving his left lower extremity and was having complaints of numbness as well as difficulty with gait. He said when attempting to ambulate sometimes his left lower extremity would give out. He initially presented to the [facility] and then was transferred to the main hospital for neurological examination. 1. Left lower extremity weakness possibly related to cervical spondylosis with myelopathy Patient presented with the symptoms mentioned above. MRI of the thoracic spine shows mild kyphosis, lumbar spine shows disc bulges at L2L3, L3-L4, L4-L5 Neurosurgery has been consulted by the neurologist for evaluation. Grade 1 anterior spondylolisthesis of C7 on T1 with apparent diffuse disc bulge with mass effect on the anterior thecal sac. The cord is not well delineated on the CT secondary to streak artifact. MRI there is evidence of central canal stenosis. Neurosurgery has been consulted by the neurologist for evaluation. Neurology is following the patient. MRI of the brain was done today which did not show any significant findings. Patient was started on steroids by the neurologist. I appreciate input from the neurologist. Continue PT/OT Lovenox for DVT prophylaxis Progress Note: Quality VTE Deep Vein Thrombosis/Pulmonary Embolism Present on Admission: No
[2019-01-15] MEDS: Acetaminophen 325 MG Tablet PO PRN (00:20)
[2019-01-15] MEDS ORDERED: ALPRAZolam 0.5 MG Tablet PO ONE (02:24)
--- NOTE | 2019-01-15 08:34 | P.PNNEU ---
Subjective Subjective Comments: pt c/o severe low back pain and still feels weak LLE Dr Schwartz consult appreciated Active Medications: Active Medications Acetaminophen (Tylenol) 650 mg PO Q4H PRN PRN Reason: Temp > 100.4 Last Admin: 01/15/19 00:20 Dose: 650 mg Al Hydroxide/Mg Hydroxide (Milk Of Magnesia Liq) 30 ml PO Q12H PRN PRN Reason: Mild Constipation Bisacodyl (Dulcolax Supp) 10 mg RECTAL DAILY PRN PRN Reason: SEVERE CONSITIPATION Dexamethasone Sodium Phosphate (Decadron Inj) 4 mg IV.PUSH Q6HR [facility] Last Admin: 01/15/19 05:30 Dose: 4 mg Enoxaparin Sodium (Lovenox Inj) 40 mg SQ DAILY [facility] Famotidine (Pepcid) 20 mg PO BID [facility] Last Admin: 01/14/19 21:38 Dose: 20 mg Lactulose (Lactulose Liq) 30 ml PO DAILY PRN PRN Reason: SEVERE CONSITIPATION Ondansetron HCl (Zofran Inj) 4 mg IV.PUSH Q6H PRN PRN Reason: NAUSEA OR VOMITING Sennosides (Senokot) 17.2 mg PO Q12H PRN PRN Reason: Moderate Constipation Sodium Chloride (Ns Flush) 2 ml IV.FLUSH BID [facility] Last Admin: 01/14/19 21:38 Dose: 2 ml Sodium Chloride (Ns Flush) 2 ml IV.FLUSH PRN PRN PRN Reason: FLUSH AFTER USING IV ACCESS Allergies/Adverse Reactions: Allergies Allergy/AdvReac Type Severity Reaction Status Date / Time No Known Allergies Allergy Verified 01/12/19 22:25 Physical Exam Vital signs: Vital Signs 01/14/19 09:00 01/14/19 11:00 01/14/19 11:22 Temperature 98.0 F Pulse Rate 68 64 97 H Respiratory Rate 18 Blood Pressure 131/83 Pulse Oximetry 98 01/14/19 12:00 01/14/19 12:53 01/14/19 14:00 Temperature Pulse Rate 64 123 H 98 H Respiratory Rate Blood Pressure Pulse Oximetry 01/14/19 15:00 01/14/19 15:14 01/14/19 16:00 Temperature 97.5 F L Pulse Rate 88 95 H 82 Respiratory Rate 20 Blood Pressure 115/76 Pulse Oximetry 99 01/14/19 17:00 01/14/19 18:00 01/14/19 19:00 Temperature Pulse Rate 84 86 92 H Respiratory Rate Blood Pressure Pulse Oximetry 01/14/19 20:00 01/14/19 21:00 01/14/19 22:00 Temperature 98.1 F Pulse Rate 100 H 94 H 86 Respiratory Rate 16 Blood Pressure 145/78 H Pulse Oximetry 100 01/14/19 23:00 01/15/19 00:00 01/15/19 01:00 Temperature Pulse Rate 82 76 76 Respiratory Rate 18 Blood Pressure 125/86 Pulse Oximetry 97 01/15/19 02:00 01/15/19 03:00 01/15/19 04:00 Temperature 97.9 F Pulse Rate 76 80 80 Respiratory Rate 18 Blood Pressure 130/73 Pulse Oximetry 97 01/15/19 05:00 01/15/19 06:00 Temperature Pulse Rate 76 82 Respiratory Rate Blood Pressure Pulse Oximetry Intake & Output 01/14/19 01/15/19 01/15/19 18:59 06:59 18:59 Intake Total 840 / 840 Balance 840 / 840 Weight 74.7 kg Intake: Oral 840 / 840 Other: # Voids 4 - Routine Neurological Exam alert, speech normal CN intact MOTOR 5/5 BUE and RLE. His LLE strength is improved today at 5-/5 left iliopsoas, 5/5 left quads, 5-/5 left hamstring 5-/5 left tibialis anterior and EHL. 5/5 left gastroc/soleus DTR 2+ BLE-patellar and ankle . No Babinski Review/Management - Review/Management Plan: I think this may be a left lumbo-sacral plexopathy REC--EMG/nerve conduction study. I spoke with Dr Betancourt. change decadron to po and taper. start neurontin for neurogenic pain
[2019-01-15] MEDS: Famotidine 20 MG Tablet PO SCH ×2 (09:58→20:44)
[2019-01-15] MEDS: Gabapentin 300 MG Capsule PO SCH ×2 (09:58→20:44)
[2019-01-15] MEDS: Enoxaparin Inj 40 MG/0.4 ML Syringe SQ SCH (09:58)
--- NOTE | 2019-01-15 11:40 | P.PNIM ---
Subjective Interval history: Patient is in bed, appears in not acute distress at this time. He complains of back pain. No fever or chills. Physical Exam Vital signs: Vital Signs 01/14/19 12:00 01/14/19 12:53 01/14/19 14:00 Temperature Pulse Rate 64 123 H 98 H Respiratory Rate Blood Pressure Pulse Oximetry 01/14/19 15:00 01/14/19 15:14 01/14/19 16:00 Temperature 97.5 F L Pulse Rate 88 95 H 82 Respiratory Rate 20 Blood Pressure 115/76 Pulse Oximetry 99 01/14/19 17:00 01/14/19 18:00 01/14/19 19:00 Temperature Pulse Rate 84 86 92 H Respiratory Rate Blood Pressure Pulse Oximetry 01/14/19 20:00 01/14/19 21:00 01/14/19 22:00 Temperature 98.1 F Pulse Rate 100 H 94 H 86 Respiratory Rate 16 Blood Pressure 145/78 H Pulse Oximetry 100 01/14/19 23:00 01/15/19 00:00 01/15/19 01:00 Temperature Pulse Rate 82 76 76 Respiratory Rate 18 Blood Pressure 125/86 Pulse Oximetry 97 01/15/19 02:00 01/15/19 03:00 01/15/19 04:00 Temperature 97.9 F Pulse Rate 76 80 80 Respiratory Rate 18 Blood Pressure 130/73 Pulse Oximetry 97 01/15/19 05:00 01/15/19 06:00 01/15/19 10:00 Temperature 98.0 F Pulse Rate 76 82 101 H Respiratory Rate 16 Blood Pressure 120/69 Pulse Oximetry 97 Intake & Output 01/14/19 01/15/19 01/15/19 18:59 06:59 18:59 Intake Total 840 / 840 Balance 840 / 840 Weight 74.7 kg Intake: Oral 840 / 840 Other: # Voids 4 Date of Last Bowel Movement 02/10/19 Narrative: General patient in no acute distress HEENT extraocular movements are intact, clear oropharyngeal mucosa, no JVD Cardiovascular S1-S2 audible, RRR, no murmurs rubs or gallops Respiratory clear to auscultation bilaterally Abdomen soft, nontender, nondistended, normal bowel sounds Extremities no edema 2+ distal pulses in bilateral upper and lower extremities Neuro patient can move all 4 extremities, sensation is intact bilaterally. Patient does have some motor weakness in the left lower extremity 4 out of 5 strength and some tingling-like sensation to the left lateral calf down to his foot. I do not see any other focal neurological deficits. Results Labs CBC & Chem 7: 01/14/19 05:39 01/14/19 05:39 Imaging Imaging: Impressions Cervical Spine MRI 01/13/19 01:00 CONCLUSION: 1. Anterolisthesis C4 on 5 and C7 on T1. 2. Minimal retrolisthesis C5 on 6. 3. Mild broad-based disc bulge without canal stenosis at C3-4. 4. Mild broad-based protrusion at C4-5, C5-6 and C6-7 levels causing mild canal stenosis. 5. Mild to moderate broad-based protrusion at C7-T1 causes mild canal stenosis. Cervical Spine CT 01/14/19 00:00 CONCLUSION: 1. Grade 1 anterior spondylolisthesis of C7 on T1 with apparent diffuse disc bulge with mass effect on the anterior thecal sac. The cord is not well delineated on the CT secondary to streak artifact. MRI there is evidence of central canal stenosis. 2. Posterior disc osteophyte complex at C5-6 greatest in right parasagittal region comes in close contact with the cord. 3. Narrowing of the neural foramina at multiple levels greatest on the right at the C3-4 level. 4. Mild grade 1 anterior spondylolisthesis of C4 on C5. Cervical Spine X-Ray 01/14/19 00:00 CONCLUSION: Grade 1 mild anterior spondylolisthesis of C4 on C5 with no abnormal mobility. Head MRI 01/14/19 00:00 CONCLUSION: 1. No acute hemorrhage, mass or evidence of acute infarction. Assessment and Plan Plan This patient is a 53-year-old male who presented with difficulty moving his left lower extremity and was having complaints of numbness as well as difficulty with gait. He said when attempting to ambulate sometimes his left lower extremity would give out. He initially presented to the [facility] and then was transferred to the main hospital for neurological examination. 1. Left lower extremity weakness possibly related to cervical spondylosis with myelopathy Patient presented with the symptoms mentioned above. MRI of the thoracic spine shows mild kyphosis, lumbar spine shows disc bulges at L2L3, L3-L4, L4-L5 Neurosurgery has been consulted by the neurologist for evaluation. Grade 1 anterior spondylolisthesis of C7 on T1 with apparent diffuse disc bulge with mass effect on the anterior thecal sac. The cord is not well delineated on the CT secondary to streak artifact. MRI there is evidence of central canal stenosis. Neurosurgery has been consulted by the neurologist for evaluation. Neurology is following the patient. MRI of the brain did not show any significant findings. Patient was started on steroids by the neurologist. I appreciate input from the neurologist. EMG studies normal no sign of plexopathy or radiculopathy per Dr Back. No evidence for lumbo-sacral plexopathy or radiculopathy on emg. No definite evidence for cervical myelopathy Ok to discharge on decadron taper ( 4 mg bid for one week then 4mg daily for one week then dc) and gabapentin with outpatient physical therapy. Follow up with Dr Back in office in 2 weeks Continue PT/OT Lovenox for DVT prophylaxis Progress Note: Quality VTE Deep Vein Thrombosis/Pulmonary Embolism Present on Admission: No
--- NOTE | 2019-01-15 17:11 | P.PNNEU ---
Subjective Subjective Comments: I discussed case with Dr Briceno. EMG today was essentially normal with no sign of plexopathy or radiculopathy Active Medications: Active Medications Acetaminophen (Tylenol) 650 mg PO Q4H PRN PRN Reason: Temp > 100.4 Last Admin: 01/15/19 00:20 Dose: 650 mg Al Hydroxide/Mg Hydroxide (Milk Of Magnesia Liq) 30 ml PO Q12H PRN PRN Reason: Mild Constipation Bisacodyl (Dulcolax Supp) 10 mg RECTAL DAILY PRN PRN Reason: SEVERE CONSITIPATION Dexamethasone (Decadron) 4 mg PO BID [facility] Last Admin: 01/15/19 10:00 Dose: 4 mg Enoxaparin Sodium (Lovenox Inj) 40 mg SQ DAILY [facility] Last Admin: 01/15/19 09:58 Dose: 40 mg Famotidine (Pepcid) 20 mg PO BID [facility] Last Admin: 01/15/19 09:58 Dose: 20 mg Gabapentin (Neurontin) 300 mg PO BID [facility] Last Admin: 01/15/19 09:58 Dose: 300 mg Lactulose (Lactulose Liq) 30 ml PO DAILY PRN PRN Reason: SEVERE CONSITIPATION Ondansetron HCl (Zofran Inj) 4 mg IV.PUSH Q6H PRN PRN Reason: NAUSEA OR VOMITING Sennosides (Senokot) 17.2 mg PO Q12H PRN PRN Reason: Moderate Constipation Sodium Chloride (Ns Flush) 2 ml IV.FLUSH BID [facility] Last Admin: 01/15/19 09:58 Dose: 2 ml Sodium Chloride (Ns Flush) 2 ml IV.FLUSH PRN PRN PRN Reason: FLUSH AFTER USING IV ACCESS Allergies/Adverse Reactions: Allergies Allergy/AdvReac Type Severity Reaction Status Date / Time No Known Allergies Allergy Verified 01/12/19 22:25 Physical Exam Vital signs: Vital Signs 01/14/19 18:00 01/14/19 19:00 01/14/19 20:00 Temperature 98.1 F Pulse Rate 86 92 H 100 H Respiratory Rate 16 Blood Pressure 145/78 H Pulse Oximetry 100 01/14/19 21:00 01/14/19 22:00 01/14/19 23:00 Temperature Pulse Rate 94 H 86 82 Respiratory Rate Blood Pressure Pulse Oximetry 01/15/19 00:00 01/15/19 01:00 01/15/19 02:00 Temperature Pulse Rate 76 76 76 Respiratory Rate 18 Blood Pressure 125/86 Pulse Oximetry 97 01/15/19 03:00 01/15/19 04:00 01/15/19 05:00 Temperature 97.9 F Pulse Rate 80 80 76 Respiratory Rate 18 Blood Pressure 130/73 Pulse Oximetry 97 01/15/19 06:00 01/15/19 07:00 01/15/19 10:00 Temperature 98.0 F Pulse Rate 82 68 101 H Respiratory Rate 16 Blood Pressure 120/69 Pulse Oximetry 97 01/15/19 11:00 01/15/19 12:02 01/15/19 16:11 Temperature 97.6 F 97.6 F Pulse Rate 72 Respiratory Rate 16 16 Blood Pressure 111/64 133/82 Pulse Oximetry Intake & Output 01/14/19 01/15/19 01/15/19 18:59 06:59 18:59 Intake Total 840 / 840 Balance 840 / 840 Weight 74.7 kg Intake: Oral 840 / 840 Other: # Voids 4 Date of Last Bowel Movement 02/10/19 Review/Management - Review/Management Plan: LLE weakness ? etiology. No evidence for lumbo-sacral plexopathy or radiculopathy on emg. No definite evidence for cervical myelopathy Ok to discharge on decadron taper ( 4 mg bid for one week then 4mg daily for one week then dc) and gabapentin with outpatient physical therapy. Follow up with me in office in 2 weeks
--- NOTE | 2019-01-15 17:57 | P.DS ---
DS: Providers Date of admission: 01/13/19 04:24 Primary care physician: No Primary Care Physician Consults: 01/13/19 04:49 Consult to Neurology Routine Consulting Provider: Gunner Back Reason for Consultation: LLE weakness Notified:: Service Spoke with:: Alyssa Date Notified:: 01/13/19 Time Notified:: 04:56 Ordering Provider: MELANIE 01/13/19 19:19 Consult to Neurosurgery Routine Consulting Provider: Asad Schwartz Hadoop Administrator:: Asad Schwartz Reason for Consultation: possible cervical myelopathy Notified:: Physician Spoke with:: WILL CALL IN THE AM Date Notified:: 01/14/19 Time Notified:: 02:13 Comments:: DR AMBER CEE IN [employer]ATOR - spoke to Dr Schwartz @ 0731 hrs and he took consult - ML Ordering Provider: DONTE Brief History from admission: 53yo w m states hes been having difficulty with his left leg for about a month. He states he started to have numbness and difficulty with gait, and his left leg will give out on him while walking or standing. Its been progressing to the point that he is unable to walk at home without stumbling into [place] and nearly falling and he has noticed the numbness has progressed up his left side now, so he finally presented to the ED at [place] and was sent to [place] for MRIs and neurologic eval. Patient denies any pain though states sometimes some left thigh pain, and more right and back pain, denies dizziness, fever, nack or arm pain or weakness, bowel or bladder symptoms or other history. 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 He said when attempting to ambulate sometimes his left lower extremity would give out. He initially presented to the [facility] and then was transferred to the main hospital for neurological examination. 1. Left lower extremity weakness possibly related to cervical spondylosis with myelopathy Patient presented with the symptoms mentioned above. MRI of the thoracic spine shows mild kyphosis, lumbar spine shows disc bulges at L2L3, L3-L4, L4-L5 Neurosurgery has been consulted by the neurologist for evaluation. Grade 1 anterior spondylolisthesis of C7 on T1 with apparent diffuse disc bulge with mass effect on the anterior thecal sac. The cord is not well delineated on the CT secondary to streak artifact. MRI there is evidence of central canal stenosis. Neurosurgery has been consulted by the neurologist for evaluation. Neurology is following the patient. MRI of the brain did not show any significant findings. Patient was started on steroids by the neurologist. I appreciate input from the neurologist. EMG studies normal no sign of plexopathy or radiculopathy per Dr Back. No evidence for lumbo-sacral plexopathy or radiculopathy on emg. No definite evidence for cervical myelopathy Ok to discharge on decadron taper ( 4 mg bid for one week then 4mg daily for one week then dc) and gabapentin with outpatient physical therapy. Follow up with Dr Back in office in 2 weeks Patient is able to ambulate fairly well. He improved significantly. Cleared by neurology for discharge. Discharge in stable condition to follow-up with PCP and consultants as outpatient. Time Spent with Patient Total time spent providing and/or coordinating discharge services: > 30 min Quality: VTE Deep Vein Thrombosis/Pulmonary Embolism Present on Admission: No Exam Narrative Exam Narrative: General patient in no acute distress Cardiovascular S1-S2 audible, RRR, no murmurs rubs or gallops Respiratory clear to auscultation bilaterally Abdomen soft, nontender, nondistended, normal bowel sounds Extremities no edema 2+ distal pulses in bilateral upper and lower extremities Neuro patient can move all 4 extremities, sensation is intact bilaterally. Patient does have some motor weakness in the left lower extremity 4 out of 5 strength and some tingling-like sensation to the left lateral calf down to his foot. Results Impressions ITS Impressions Cervical Spine MRI 01/13/19 01:00 CONCLUSION: 1. Anterolisthesis C4 on 5 and C7 on T1. 2. Minimal retrolisthesis C5 on 6. 3. Mild broad-based disc bulge without canal stenosis at C3-4. 4. Mild broad-based protrusion at C4-5, C5-6 and C6-7 levels causing mild canal stenosis. 5. Mild to moderate broad-based protrusion at C7-T1 causes mild canal stenosis. Lumbar Spine MRI 01/13/19 01:05 CONCLUSION: 1. Multilevel disc bulges including mild canal stenosis at L2-3, L3-4 and L4-5 levels. 2. Scattered facet arthropathy and neural foraminal narrowing as above. Thoracic Spine MRI 01/13/19 01:05 CONCLUSION: 1. Mild kyphosis and minimal degenerative changes. 2. Small right paracentral protrusion at T6-7 without canal stenosis. 3. Tiny central protrusion at T7-8 without canal stenosis. 4. Mild broad-based disc bulge T8-[address] without canal stenosis. Head CT 01/13/19 03:59 CONCLUSION: 1. No acute intracranial abnormality . . Cervical Spine CT 01/14/19 00:00 CONCLUSION: 1. Grade 1 anterior spondylolisthesis of C7 on T1 with apparent diffuse disc bulge with mass effect on the anterior thecal sac. The cord is not well delineated on the CT secondary to streak artifact. MRI there is evidence of central canal stenosis. 2. Posterior disc osteophyte complex at C5-6 greatest in right parasagittal region comes in close contact with the cord. 3. Narrowing of the neural foramina at multiple levels greatest on the right at the C3-4 level. 4. Mild grade 1 anterior spondylolisthesis of C4 on C5. Cervical Spine X-Ray 01/14/19 00:00 CONCLUSION: Grade 1 mild anterior spondylolisthesis of C4 on C5 with no abnormal mobility. Head MRI 01/14/19 00:00 CONCLUSION: 1. No acute hemorrhage, mass or evidence of acute infarction. Discharge Plan Discharge Disposition Patient Disposition: 01 Discharge Home Discharge Condition Condition: Stable Discharge Order Discharge Orders: Discharge Order (Routine); Ordered 01/16/19 Ordered By: Jessica Escobedo Discharge Details Anticipated Discharge Date: 01/15/19 Discharge Comment: DC when arrnagements are done Physicians Team ED Provider: Corrine Miles Primary Care Provider: Primary Care Physici,No Attending Provider: Jessica Escobedo Other Providers: Gunner Back ; Asad Schwartz Rxs /Orders / Referrals /Forms Prescriptions: New gabapentin [Neurontin] 300 mg Capsule 300 mg PO BID Qty: 60 RF: 0 dexamethasone 4 mg Tablet 4 mg PO BID Qty: 21 RF: 0 No Action No Known Home Medications RF: 0 Ambulatory Orders / Order Sets / DME: [facility] (1 each) (Routine) Location: Determined by Patient Ordered By: Jessica Escobedo Referrals: Gunner Back MD, PhD [Physician] - See Instructions ( Please call the physician's office to book the appointment to be seen within [ 2 weeks ].) Primary Care [place],No [Primary Care Provider] - See Instructions ( Please call the physician's office to book the appointment to be seen within [2-3 days with your PCP]. If no insurance can go to [facility] ) Discharge Instructions Patient Printed Instructions: Gabapentin (By mouth), Dexamethasone (By mouth), Back Pain (GEN) Status ED Status: Left Department Discharge Information Discharge Date/Time: 01/16/19 13:21
--- NOTE | 2019-01-15 18:03 | P.DCO ---
Physical Therapy Order: Evaluate and treat Case Management Consult Case Management Consult-Home Health: Yes I have seen patient Austyn Abreu on 01/15/19. My clinical findings support the need for the requested home health care services because: Limited mobility due to disease progression and Deconditioned with increased weakness I certify that my clinical findings support that this patient is homebound because: Post-op weakness and Unsteady gait/balance
--- NOTE | 2019-01-15 18:35 | P.CONREH ---
History of Present Illness Consult date: 01/15/19 Primary Care Provider: No Primary Care Physician [facility] History History Provided By: Patient Medical History Medical History Patient denies medical problems (Acute) Surgical History Surgical History H/O hernia repair (Acute) History of surgery on arm (Acute) Tobacco History Second Hand Smoke Exposure: No Tobacco Use In Past 30 Days: No Smoking Status: Former smoker Tobacco Type: Cigarettes Alcohol History How Often Do You Have a Drink Containing Alcohol: Monthly or less Substance Use History Substance History: No History of Abuse Travel History Recent Travel in the [place] Within the Last 8 Weeks: No Recent Travel Out of the Country Within the Last 8 Weeks: No Immunization History Tetanus Immunization: >5 Years Medications and Allergies Allergies Allergy/AdvReac Type Severity Reaction Status Date / Time No Known Allergies Allergy Verified 01/12/19 22:25 Home Medications Medication Instructions Recorded Confirmed Type No Known Home Medications 01/12/19 01/13/19 History Active Medications: Active Medications Acetaminophen (Tylenol) 650 mg PO Q4H PRN PRN Reason: Temp > 100.4 Last Admin: 01/15/19 00:20 Dose: 650 mg Al Hydroxide/Mg Hydroxide (Milk Of Magnesia Liq) 30 ml PO Q12H PRN PRN Reason: Mild Constipation Bisacodyl (Dulcolax Supp) 10 mg RECTAL DAILY PRN PRN Reason: SEVERE CONSITIPATION Dexamethasone (Decadron) 4 mg PO BID [facility] Last Admin: 01/15/19 10:00 Dose: 4 mg Enoxaparin Sodium (Lovenox Inj) 40 mg SQ DAILY [facility] Last Admin: 01/15/19 09:58 Dose: 40 mg Famotidine (Pepcid) 20 mg PO BID [facility] Last Admin: 01/15/19 09:58 Dose: 20 mg Gabapentin (Neurontin) 300 mg PO BID [facility] Last Admin: 01/15/19 09:58 Dose: 300 mg Lactulose (Lactulose Liq) 30 ml PO DAILY PRN PRN Reason: SEVERE CONSITIPATION Ondansetron HCl (Zofran Inj) 4 mg IV.PUSH Q6H PRN PRN Reason: NAUSEA OR VOMITING Sennosides (Senokot) 17.2 mg PO Q12H PRN PRN Reason: Moderate Constipation Sodium Chloride (Ns Flush) 2 ml IV.FLUSH BID [facility] Last Admin: 01/15/19 09:58 Dose: 2 ml Sodium Chloride (Ns Flush) 2 ml IV.FLUSH PRN PRN PRN Reason: FLUSH AFTER USING IV ACCESS Exam Physical Examination Vital Signs / I&O: Vital Signs 01/14/19 19:00 01/14/19 20:00 01/14/19 21:00 Temperature 98.1 F Pulse Rate 92 H 100 H 94 H Respiratory Rate 16 Blood Pressure 145/78 H Pulse Oximetry 100 01/14/19 22:00 01/14/19 23:00 01/15/19 00:00 Temperature Pulse Rate 86 82 76 Respiratory Rate 18 Blood Pressure 125/86 Pulse Oximetry 97 01/15/19 01:00 01/15/19 02:00 01/15/19 03:00 Temperature Pulse Rate 76 76 80 Respiratory Rate Blood Pressure Pulse Oximetry 01/15/19 04:00 01/15/19 05:00 01/15/19 06:00 Temperature 97.9 F Pulse Rate 80 76 82 Respiratory Rate 18 Blood Pressure 130/73 Pulse Oximetry 97 01/15/19 07:00 01/15/19 10:00 01/15/19 11:00 Temperature 98.0 F Pulse Rate 68 101 H 72 Respiratory Rate 16 Blood Pressure 120/69 Pulse Oximetry 97 01/15/19 12:02 01/15/19 16:11 01/15/19 18:28 Temperature 97.6 F 97.6 F Pulse Rate 102 H Respiratory Rate 16 16 Blood Pressure 111/64 133/82 Pulse Oximetry Intake & Output 01/14/19 01/15/19 01/15/19 18:59 06:59 18:59 Intake Total 840 / 840 Balance 840 / 840 Weight 74.7 kg Intake: Oral 840 / 840 Other: # Voids 4 Date of Last Bowel Movement 02/10/19 Intake & Output 01/13/19 01/14/19 01/15/19 01/16/19 06:59 06:59 06:59 06:59 Intake Total 880 / 880 840 / 840 Output Total 300 / 300 Balance 580 / 580 840 / 840 Weight 74.843 kg 74.7 kg Date of Last Bowel Movement: 02/10/19 Results Labs CBC & Chem 7: 01/14/19 05:39 01/14/19 05:39
--- NOTE | 2019-01-15 18:51 | P.PNNS ---
Subjective Interval history: 01/15. Improved today feels better no significant pain Physical Exam Vital signs: Vital Signs 01/14/19 19:00 01/14/19 20:00 01/14/19 21:00 Temperature 98.1 F Pulse Rate 92 H 100 H 94 H Respiratory Rate 16 Blood Pressure 145/78 H Pulse Oximetry 100 01/14/19 22:00 01/14/19 23:00 01/15/19 00:00 Temperature Pulse Rate 86 82 76 Respiratory Rate 18 Blood Pressure 125/86 Pulse Oximetry 97 01/15/19 01:00 01/15/19 02:00 01/15/19 03:00 Temperature Pulse Rate 76 76 80 Respiratory Rate Blood Pressure Pulse Oximetry 01/15/19 04:00 01/15/19 05:00 01/15/19 06:00 Temperature 97.9 F Pulse Rate 80 76 82 Respiratory Rate 18 Blood Pressure 130/73 Pulse Oximetry 97 01/15/19 07:00 01/15/19 10:00 01/15/19 11:00 Temperature 98.0 F Pulse Rate 68 101 H 72 Respiratory Rate 16 Blood Pressure 120/69 Pulse Oximetry 97 01/15/19 12:02 01/15/19 16:11 01/15/19 18:28 Temperature 97.6 F 97.6 F Pulse Rate 102 H Respiratory Rate 16 16 Blood Pressure 111/64 133/82 Pulse Oximetry Intake & Output 01/14/19 01/15/19 01/15/19 18:59 06:59 18:59 Intake Total 840 / 840 Balance 840 / 840 Weight 74.7 kg Intake: Oral 840 / 840 Other: # Voids 4 Date of Last Bowel Movement 02/10/19 Narrative: The patient is alert, awake. Comfortable, in no acute distress. Speech is fluent. Cranial nerve examination: pupils to be equal, round and reactive to light. Extra-ocular movements are intact. Facial motor and sensory function are normal and symmetrical. Gross hearing appears intact. Sternocleidomastoid and trapezius muscles are symmetrical. Other cranial nerves are intact. Neck is soft and supple with a good range of motion without pain. Muscle strength is normal in all muscle groups of both upper and lower extremities. Sensory examination is intact to light touch and pin prick in both the upper and lower extremities. Deep tendon reflexes are symmetrical in both upper and lower extremities. There is a bilateral plantar flexion response. Cerebellar examination is unremarkable, without deficits. Lungs are clear Heart regular rhythm is regular rate Skin warm and dry Assessment and Plan - Plan I have reviewed the clinical and radiological findings Impressions Cervical Spine MRI 01/13/19 01:00 CONCLUSION: 1. Anterolisthesis C4 on 5 and C7 on T1. 2. Minimal retrolisthesis C5 on 6. 3. Mild broad-based disc bulge without canal stenosis at C3-4. 4. Mild broad-based protrusion at C4-5, C5-6 and C6-7 levels causing mild canal stenosis. 5. Mild to moderate broad-based protrusion at C7-T1 causes mild canal stenosis. Lumbar Spine MRI 01/13/19 01:05 CONCLUSION: 1. Multilevel disc bulges including mild canal stenosis at L2-3, L3-4 and L4-5 levels. 2. Scattered facet arthropathy and neural foraminal narrowing as above. Thoracic Spine MRI 01/13/19 01:05 CONCLUSION: 1. Mild kyphosis and minimal degenerative changes. 2. Small right paracentral protrusion at T6-7 without canal stenosis. 3. Tiny central protrusion at T7-8 without canal stenosis. 4. Mild broad-based disc bulge T8-9 without canal stenosis. Head CT 01/13/19 03:59 CONCLUSION: 1. No acute intracranial abnormality Caprini VTE Risk Assessment Caprini Risk Assessment Model: Point Value = 1 Point Value = 2 Point Value = 3 Point Value = 5 Age 41-60 Minor surgery BMI > 25 kg/m2 Swollen legs Varicose veins or History of unexplained or recurrent spontaneous Oral contraceptives or hormone replacement Sepsis (< 1 month) Serious lung disease, including pneumonia (< 1 month) Abnormal pulmonary function Acute myocardial infarction Congestive heart failure (< 1 month) History of inflammatory bowel disease Medical patient at bed rest Age 61-74 Arthroscopic surgery Major open surgery (> 45 min) Laparoscopic surgery (> 45 min) Malignancy Confined to bed (> 72 hours) Immobilizing plaster cast Central venous access Age >= 75 History of VTE Family history of VTE Factor V Leiden Prothrombin [id number] Lupus anticoagulant Anticardiolipin antibodies Elevated serum homocysteine Heparin-induced thrombocytopenia Other congenital or acquired thrombophilia Stroke (< 1 month) Elective arthroplasty Hip, pelvis, or leg fracture Acute spinal cord injury (< 1 month) Prophylaxis Regimen: Total Risk Factor Score Risk Level Prophylaxis Regimen 0-1 Low Early ambulation 2 Moderate Order ONE of the following: *Sequential Compression Device (SCD) *Heparin 5000 units SQ BID 3-4 Higher Order ONE of the following medications: *Heparin 5000 units SQ TID *Enoxaparin/Lovenox 40 mg SQ daily (WT < 150 kg, CrCl > 30 mL/min) *Enoxaparin/Lovenox 30 mg SQ daily (WT < 150 kg, CrCl > 10-29 mL/min) *Enoxaparin/Lovenox 30 mg SQ BID (WT < 150 kg, CrCl > 30 mL/min) AND/OR *Sequential Compression Device (SCD) 5 or more Highest Order ONE of the following medications: *Heparin 5000 units SQ TID (Preferred with Epidurals) *Enoxaparin/Lovenox 40 mg SQ daily (WT < 150 kg, CrCl > 30 mL/min) *Enoxaparin/Lovenox 30 mg SQ daily (WT < 150 kg, CrCl > 10-29 mL/min) *Enoxaparin/Lovenox 30 mg SQ BID (WT < 150 kg, CrCl > 30 mL/min) AND *Sequential Compression Device (SCD)
[2019-01-15] MEDS ORDERED: Zolpidem Tartrate 5 MG Tablet PO ONE (20:31)
[2019-01-16 07:57] VITALS: BP 121/83; RESP 17; TEMP 96.7; O2SAT 97
[2019-01-16] MEDS: Famotidine 20 MG Tablet PO SCH (08:03)
[2019-01-16] MEDS: Gabapentin 300 MG Capsule PO SCH (08:03)
[2019-01-16] MEDS: Enoxaparin Inj 40 MG/0.4 ML Syringe SQ SCH (08:03)
[2019-01-16 11:27] VITALS: PULSE 96
== END 2019-01-16 13:21 | disposition home or self-care (01) | DRG 552 ==
LOC: NEPD 00:50 → NEDA 04:24 → NEDH 06:52 → NEDA 15:21 → NEDH 20:16 → HCIS 01-14 00:33
PROVIDERS: ADMIT Hospitalist; ATTEND Hospitalist
CPT/HCPCS: 70450; 70553; 72040; 72127; 72141; 72146; 72148; 80053; 85025; 85610; 85651; 85652; 85730; 90774; 90784; 96374; 97162; 97167; 97535; 99285; A9585; C8952; J1100; J1650; J2060; J8540; Q9967